=== PATIENT | male | born 1950 | race Caucasian/White ===

== ENCOUNTER 2023-05-05 10:01 | Emergency (ER) | payer MEDICAID, OTHER ==
[~2023-05-05] VITALS: Ht 165.1 cm; Wt 80.0 kg
[2023-05-05 10:27] VITALS: O2SAT 96
[2023-05-05 11:08] LABS: BASOPHILS % 1.4 % (0.0-2.0); EOSINOPHILS % 2.5 % (0.0-5.0); HEMATOCRIT. 39.2 % (42.0-52.0); HEMOGLOBIN. 12.6 g/dL (14.0-18.0); LYMPHOCYTES % 14.3 % (20.0-50.0); MEAN CORPUSCULAR HEMOGLOBIN 28.3 pg (28.0-32.0); MEAN CORPUSCULAR HGB CONC 32.2 g/dL (31.0-37.0); MEAN CORPUSCULAR VOLUME 87.8 fL (80.0-94.0); MEAN PLATELET VOLUME 8.4 fl (7.4-10.4); NEUTROPHILS % 73.8 % (40.0-76.0); PLATELET 184 x1000/uL (130-400); RED BLOOD CELL COUNT 4.47 mill/uL (4.7-6.1); RED CELL DISTRIBUTION WIDTH 17.1 % (11.6-14.6); WHITE BLOOD COUNT 4.6 x1000/uL (4.5-11.0)
[2023-05-05 11:14] LABS: INR 1.2; PROTHROMBIN TIME 12.9 sec (9.6-11.0)
[2023-05-05 11:23] LABS: CHLORIDE 105 mEq/L (98-107); INDEX HEMOLYSI 1 (1-3); INDEX ICTERIC 2 (1-4); INDEX LIPEMIC 1 (1-3); POTASSIUM 3.8 mEq/L (3.5-5.1); SODIUM 134 mEq/L (136-145)
[2023-05-05 11:35] LABS: ALANINE AMINOTRANSFERASE 22 IU/L (13-61); ASPARTATE AMINOTRANSFERASE 26 IU/L (15-37); BILIRUBIN TOTAL 2.4 mg/dL (0.1-1.0); CALCIUM 8.1 mg/dL (8.5-10.1); CARBON DIOXIDE 23 mEq/L (21-32); CREATININE 0.7 mg/dL (0.6-1.3); GLUCOSE 238 mg/dL (70-105); NT PRO B-TYPE NATRIURETIC PEP 8323 pg/mL (5-125); PROTEIN TOTAL 7.2 g/dL (6.0-8.3); TROPONIN I HIGH SENSITIVITY 53 ng/L (<78); UREA NITROGEN BLOOD 13 mg/dL (7-21)
[2023-05-05] MEDS ORDERED: FUROSEMIDE 40MG/4ML VIAL IV ONE (13:00)
[2023-05-05] MEDS ORDERED: ASPIRIN 81MG TABLET PO ONE (13:00)
[2023-05-05 14:15] LABS: CLARITY URINE CLEAR (CLEAR); COLOR URINE YELLOW (YELLOW); GLUCOSE URINE NEGATIVE (NEGATIVE); KETONES URINE NEGATIVE (NEGATIVE); LEUKOCYTE ESTERASE URINE NEGATIVE (NEGATIVE); NITRITE URINE NEGATIVE (NEGATIVE); OCCULT BLOOD URINE NEGATIVE (NEGATIVE); PROTEIN URINE 2+ (NEGATIVE); SPECIFIC GRAVITY URINE 1.008 (1.005-1.030)
[2023-05-05 14:36] LABS: BACTERIA URINE NONE SEEN; RBC URINE NONE SEEN /hpf (0-2); SQUAMOUS EPITHELIAL CELL URINE NONE SEEN /lpf (RARE/1+); WBC URINE 0-2 /hpf (0-2); YEAST URINE NONE SEEN
[2023-05-05 15:43] VITALS: BP 161/98; PULSE 78; RESP 16; TEMP 98.1
== END 2023-05-05 16:04 | disposition short-term general hospital (02) ==
LOC: ER 10:18
DX: I50.9 Heart failure, unspecified (principal)
CPT/HCPCS: 80053; 81003; 83880; 85025; 85610; 84484; 36415; 71045; 93005; 96374; 99285; Z7610 ×3; J1940